=== PATIENT | male | born 1970 | race Caucasian/White ===

== ENCOUNTER 2023-01-31 17:38 | Emergency (ER) | payer OTHER ==
[2023-01-31] MEDS ORDERED: traMADol HCl 50 MG TAB ONE (18:33)
== END 2023-01-31 19:59 | disposition home or self-care (01) ==
LOC: NAV ERS 17:38
DX: S60.211A Contusion of right wrist, initial encounter (principal); S20.20XA Contusion of thorax, unspecified, initial encounter; E11.9 Type 2 diabetes mellitus without complications; I10 Essential (primary) hypertension; W17.89XA Other fall from one level to another, initial encounter
CPT/HCPCS: 94799